=== PATIENT | male | born 1995 | race Caucasian/White ===

== ENCOUNTER 2018-09-23 22:42 | Emergency (ER) | payer OTHER ==
[~2018-09-23] VITALS: Ht 175.3 cm; Wt 95.5 kg
[2018-09-23] MEDS ORDERED: MOBI15TA PO (22:47)
[2018-09-23] MEDS ORDERED: LORA-674 PO (22:47)
[2018-09-23] MEDS ORDERED: FLON1SPR NARES (22:47)
[2018-09-23] MEDS ORDERED: TRUVTAB PO (22:47)
[2018-09-24] MEDS ORDERED: ISOVUE-370 76% 100ML VIAL (Q9967) As Ordered ONE (00:28)
[2018-09-24 00:52] LABS: HEMOGLOBIN 14.4 g/dl (13.5-17.5); MEAN CORPUSCULAR HEMOGLOBIN 33.6 pg (27.0-33.0); MEAN CORPUSCULAR HGB CONC 35.1 g/dl (32.0-36.5); MEAN CORPUSCULAR VOLUME 95.8 fl (80.0-96.0); PLATELET COUNT, AUTOMATED 183 10^3/uL (150-450); RED BLOOD COUNT 4.28 10^6/uL (4.30-6.10); WHITE BLOOD COUNT 10.1 10^3/uL (4.0-10.0)
[2018-09-24] MEDS ORDERED: COLA100C5 PO (02:04)
--- NOTE | 2018-09-24 02:41 | REPVR ---
EXAM: CT Abdomen and Pelvis With Contrast EXAM DATE/TIME: 09/24/2018 12:13 AM CLINICAL HISTORY: 23 years old, male; Other: Rectal pain; Additional info: RO fecal impaction TECHNIQUE: Imaging protocol: Axial computed tomography images of the abdomen and pelvis with intravenous contrast. Coronal and sagittal reformatted images were created and reviewed. Radiation optimization: All CT scans at this facility use at least one of these dose optimization techniques: automated exposure control; mA and/or kV adjustment per patient size (includes targeted exams where dose is matched to clinical indication); or iterative reconstruction. Contrast material: ISO; Contrast volume: 100 ml; Contrast route: AC; COMPARISON: No relevant prior studies available. FINDINGS: LUNG BASES: Mild dependent atelectasis. VASCULAR: Major vasculature is within normal limits. PERITONEAL : No free air or free fluid. GI: No hiatal hernia. The stomach contains some fluid and gas. The stomach is not sufficiently distended to evaluate wall thickening or exclude fold thickening. Nonspecific fluid-filled loops of small bowel. No asymmetric small bowel dilation to suggest obstruction. There is no focal mesenteric inflammatory stranding. Multiple small nonspecific mesenteric lymph nodes are seen. Scattered fecal material and gas within portions of the colon and rectum. No significant colonic or rectal distention with fecal material or gas to suggest constipation or fecal impaction. Portions of the colon appear slightly thick walled from the distal transverse through the rectum. This could be artifact secondary to insufficient distention but minimal proctocolitis maybe a possibility. No pericolonic inflammatory stranding seen. Slightly elevated perirectal vascularity noted as well as mildly enlarged perirectal lymph nodes measuring up to 10 mm in short axis. These findings could represent proctitis with reactive lymph nodes, and/or hemorrhoids. Followup with direct visualization or barium enema is advised, to exclude any possibility of underlying rectal lesion. No perirectal or perianal abscess or soft tissue gas is seen. No evidence of acute diverticulitis. The appendix is not visualized and may been removed. HEPATOBILIARY, PANCREAS, SPLEEN: Sagittal hepatic length is 18.4 cm. 12.7 mm hypoenhancing lesion noted within the posterior segment of the right hepatic lobe, most likely a hemangioma. Partially contracted gallbladder. No calcified gallstones or biliary dilation. No pancreatic inflammation. Spleen not enlarged. ADRENALS, KIDNEYS, BLADDER, RETROPERITONEAL: Adrenals within normal limits. No hydronephrosis. Symmetric renal enhancement. No perinephric stranding or fluid. Nonobstructive 5 mm left midpole renal calculus. No perivesical stranding or fluid. The prostate does not appear enlarged. No bladder wall thickening. MUSCULOSKELETAL: Mild subcutaneous stranding and bubbles of gas right posterior gluteal possibly from subcutaneous injection. No acute fracture or suspicious bone lesion. IMPRESSION: No findings to suggest constipation or fecal impaction are seen. There is mildly elevated perirectal vascularity and slightly prominent perirectal lymph nodes. This could be correlated for proctitis. Gastrointestinal findings and recommendations discussed above in detail. Other incidental and non-emergent findings discussed above. Electronically signed by: Edgar Ponce On 09/24/2018 02:41:12 AM
[2018-09-24 04:35] LABS: CHLAMYDIA DNA AMPLIFICATION NEGATIVE (NEGATIVE); GC DNA AMPLIFICATION NEGATIVE (NEGATIVE)
[2018-09-24 05:00] VITALS: BP 107/58
== END 2018-09-24 05:02 | disposition home or self-care (01) ==
LOC: M ED 22:42
DX: K59.00 Constipation, unspecified (principal); K62.89 Other specified diseases of anus and rectum; Z79.899 Other long term (current) drug therapy
CPT/HCPCS: 36415; 74177; 80047; 85027; 87491; 87591; 99284; Q9967

== ENCOUNTER 2018-11-07 19:40 | Emergency (ER) | payer OTHER ==
[~2018-11-07] VITALS: Ht 172.7 cm; Wt 95.5 kg
[~2018-11-07 19:40] MED LIST: COLA100C5 PO; FLON1SPR NARES; LORA-674 PO; MOBI15TA PO; TRUVTAB PO
[2018-11-07] MEDS ORDERED: TRAM50TA2 PO (19:49)
[2018-11-07 20:20] LABS: BASO % 0.3 % (0.0-1.0); EOS # 0.3 10^3/uL (0.0-0.50); EOS % 4.4 % (0.0-3.0); HEMATOCRIT 40.9 % (42.0-52.0); HEMOGLOBIN 14.4 g/dl (13.5-17.5); LYMPH # 2.1 10^3/uL (1.5-6.5); LYMPH % 32.9 % (24.0-44.0); MEAN CORPUSCULAR HEMOGLOBIN 33.5 pg (27.0-33.0); MEAN CORPUSCULAR HGB CONC 35.2 g/dl (32.0-36.5); MEAN CORPUSCULAR VOLUME 95.1 fl (80.0-96.0); MONO # 0.5 10^3/uL (0.0-0.8); MONO % 7.2 % (0.0-5.0); NEUTROPHILS # 3.5 10^3/uL (1.8-7.7); PLATELET COUNT, AUTOMATED 190 10^3/uL (150-450); WHITE BLOOD COUNT 6.4 10^3/uL (4.0-10.0)
[2018-11-07 20:42] LABS: ALBUMIN 3.9 GM/DL (3.2-5.2); ALT/SGPT 32 U/L (12-78); BILIRUBIN,DIRECT 0.2 MG/DL (0.0-0.2); BILIRUBIN,TOTAL 0.8 MG/DL (0.2-1.0); BLOOD UREA NITROGEN 14 MG/DL (7-18); CALCIUM LEVEL 8.4 MG/DL (8.5-10.1); CARBON DIOXIDE LEVEL 30 MEQ/L (21-32); CHLORIDE LEVEL 106 MEQ/L (98-107); GLOMERULAR FILTRATION RATE > 60.0 (>60); GLUCOSE, FASTING 90 MG/DL (70-100); LIPASE 96 U/L (73-393); POTASSIUM SERUM 3.6 MEQ/L (3.5-5.1); SODIUM LEVEL 141 MEQ/L (136-145); TOTAL PROTEIN 6.8 GM/DL (6.4-8.2)
[2018-11-07] MEDS ORDERED: traMADol 50 MG TAB PO ONE (21:00)
--- NOTE | 2018-11-07 22:25 | REPVR ---
EXAM: US Abdomen Limited, Right Upper Quadrant EXAM DATE/TIME: 11/07/2018 9:18 PM CLINICAL HISTORY: 23 years old, male; Abdominal pain; Epigastric; Additional info: Ruq pain TECHNIQUE: Imaging protocol: Real-time ultrasound of the abdomen with image documentation. Examination was focused on the right upper quadrant. COMPARISON: CT ABD/PEL W/IV CONTRAST ONLY 09/24/2018 12:47 AM FINDINGS: Liver: Mildly echogenic, consistent with fatty infiltration. Gallbladder: Partially contracted. No gallstones. No gallbladder wall thickening or pericholecystic fluid. 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 Common bile duct: No stones. No ductal dilatation. Pancreas: Unremarkable as visualized. Right kidney: No mass. No definite stones. No hydronephrosis. IMPRESSION: No acute sonographic findings. Electronically signed by: Micky Beckham On 11/07/2018 22:25:01 PM
[2018-11-07 23:28] VITALS: BP 126/78
== END 2018-11-08 00:01 | disposition home or self-care (01) ==
LOC: M ED 19:40
DX: G89.29 Other chronic pain (principal); R10.11 Right upper quadrant pain; R11.2 Nausea with vomiting, unspecified; Z87.448 Personal history of other diseases of urinary system; J30.2 Other seasonal allergic rhinitis; K64.9 Unspecified hemorrhoids; K76.89 Other specified diseases of liver; K51.20 Ulcerative (chronic) proctitis without complications; Z79.899 Other long term (current) drug therapy

== ENCOUNTER → 2018-12-10 | Outpatient (CLI) | payer OTHER ==
[~2018-12-10] MED LIST changes: +TRAM50TA2 PO
--- NOTE | 2018-12-10 11:00 | REP ---
Hepatobiliary scan and gallbladder ejection fraction: History: Unspecified abdominal pain. Change in bowel habits. Technique: 6.5 mCi of technetium-99m mebrofenin was injected and sequential anterior images are acquired. 65 minutes after the mebrofenin injection, the patient consumed 8 ounces Ensure and an additional 60 minutes of imaging was acquired. Regions of interest are plotted around the gallbladder. Findings: The initial hepatocellular parenchymal uptake phase is normal and homogeneous. Intra- and extra-hepatic bile ducts are labeled by the 10 -minute image. The gallbladder is first labeled on the 10 -minute image. There is normal washout from the liver parenchyma into the gallbladder and small intestine on subsequent images. The gallbladder ejection fraction is 46 %. Values greater than 35 % are considered normal with this technique. Impression: Normal hepatobiliary scan and normal gallbladder ejection fraction. Electronically Signed by Donald Vazquez MD 12/10/2018 10:51 A
== END ==
LOC: M RAD 07:51
PROVIDERS: ATTEND Preventive Medicine Undersea and Hyperbaric Medicine
DX: R10.9 Unspecified abdominal pain (principal); R19.4 Change in bowel habit
CPT/HCPCS: 78227; A9537; J2805

== ENCOUNTER 2019-12-01 05:18 | Emergency (ER) | payer OTHER ==
[~2019-12-01] VITALS: Ht 172.7 cm; Wt 95.5 kg
[2019-12-01 05:19] VITALS: BP 128/87
[2019-12-01] MEDS ORDERED: BUPR-69 (05:23)
[2019-12-01] MEDS ORDERED: PRED20TA PO (05:43)
[2019-12-01] MEDS ORDERED: CETI-24 PO (05:43)
[2019-12-01] MEDS ORDERED: CETIRIZINE (ZyrTEC) 10 MG TAB PO ONE (05:45)
[2019-12-01] MEDS ORDERED: methylPREDNISolone 125MG 2ML VIAL IM ONE (05:45)
== END 2019-12-01 06:00 | disposition home or self-care (01) ==
LOC: M ED 05:18
DX: J30.89 Other allergic rhinitis (principal); Z88.1 Allergy status to other antibiotic agents; Z79.899 Other long term (current) drug therapy
CPT/HCPCS: 96372; 99283; J2930

== ENCOUNTER 2019-12-20 11:23 | Emergency (ER) | payer OTHER ==
[~2019-12-20] VITALS: Ht 175.3 cm; Wt 98.3 kg
[~2019-12-20 11:23] MED LIST changes: +BUPR-69; +CETI-24 PO; +PRED20TA PO
--- NOTE | 2019-12-20 12:53 | REPVR ---
PROCEDURE INFORMATION: Exam: CT Lumbar Spine Without Contrast Exam date and time: 12/20/2019 12:38 PM Age: 24 years old Clinical indication: Low back pain; Additional info: Lift injury TECHNIQUE: Imaging protocol: Computed tomography images of the lumbar spine without contrast. Radiation optimization: All CT scans at this facility use at least one of these dose optimization techniques: automated exposure control; mA and/or kV adjustment per patient size (includes targeted exams where dose is matched to clinical indication); or iterative reconstruction. COMPARISON: No relevant prior studies available. FINDINGS: Vertebrae: There is accentuation of the normal lumbar lordosis. No acute fracture. Normal alignment. Discs/Spinal canal/Neural foramina: At L3/4, there is shallow disc bulging. The spinal canal and neural foramina are patent. At L4/5, there is shallow disc bulging. There is mild facet hypertrophy. The spinal canal and neural foramina are patent. At L5/S1, there is shallow disc bulging. There is mild facet hypertrophy. The spinal canal and neural foramina are patent. Kidneys and ureters: There is a nonobstructing left renal calculus. Soft tissues: Unremarkable. IMPRESSION: No acute abnormality or advanced degenerative change. Electronically signed by: Lenore Cuevas On 12/20/2019 12:53:55 PM
[2019-12-20] MEDS ORDERED: KETOROLAC 60MG 2ML VIAL IM ONE (13:00)
[2019-12-20] MEDS ORDERED: methylPREDNISolone 125MG 2ML VIAL IM ONE (13:00)
[2019-12-20] MEDS ORDERED: LIDOCAINE 5% (LIDODERM) PATCH TD ONE (13:00)
--- NOTE | 2019-12-20 13:09 | REPVR ---
PROCEDURE INFORMATION: Exam: XR Left Forearm Exam date and time: 12/20/2019 1:04 PM Age: 24 years old Clinical indication: Pain; Lower or forearm; Left; Additional info: Lift injury TECHNIQUE: Imaging protocol: XR Left forearm. Views: 2 views. COMPARISON: No relevant prior studies available. FINDINGS: Bones/joints: Normal. Soft tissues: Normal. IMPRESSION: No acute findings. Electronically signed by: Lenore Cuevas On 12/20/2019 13:08:37 PM
--- NOTE | 2019-12-20 13:09 | REPVR ---
PROCEDURE INFORMATION: Exam: XR Left Elbow Exam date and time: 12/20/2019 1:04 PM Age: 24 years old Clinical indication: Pain; Lower or forearm; Left; Additional info: Lift injury TECHNIQUE: Imaging protocol: XR Left elbow. Views: 3 or more views. COMPARISON: No relevant prior studies available. FINDINGS: Bones/joints: Normal. Soft tissues: Normal. IMPRESSION: No acute findings. Electronically signed by: Lenore Cuevas On 12/20/2019 13:08:56 PM
[2019-12-20] MEDS ORDERED: LIDO5DIS41 TOP (13:18)
[2019-12-20] MEDS ORDERED: IBUP80TA PO (13:23)
[2019-12-20 13:26] VITALS: BP 134/79
[2019-12-20] MEDS ORDERED: **NOTE PATIENT COMMENT** MISC XX SCH (21:00)
== END 2019-12-20 13:38 | disposition home or self-care (01) ==
LOC: M ED 11:23
DX: M25.522 Pain in left elbow (principal); M54.5 Low back pain; Z79.899 Other long term (current) drug therapy; Z88.1 Allergy status to other antibiotic agents
CPT/HCPCS: 72131; 73080; 73090; 96372; 99284; J1885; J2930

== ENCOUNTER → 2020-02-25 | Outpatient (CLI) | payer OTHER ==
[~2020-02-25] MED LIST changes: +IBUP80TA PO; +LIDO5DIS41 TOP
== END ==
LOC: M LABSMTC 13:47
PROVIDERS: ATTEND Family Medicine
DX: Z20.828 Contact with and (suspected) exposure to other viral communicable diseases (principal)

== ENCOUNTER 2020-03-10 17:31 | Emergency (ER) | payer OTHER ==
[~2020-03-10] VITALS: Ht 175.3 cm; Wt 101.4 kg
[2020-03-10] MEDS ORDERED: BUPR300T92 PO (18:05)
[2020-03-10] MEDS ORDERED: DESC1TAB PO (18:05)
[2020-03-10 20:20] VITALS: BP 134/76
== END 2020-03-10 20:22 | disposition home or self-care (01) ==
LOC: M ED 17:31
DX: R19.5 Other fecal abnormalities (principal); Z88.1 Allergy status to other antibiotic agents; Z79.899 Other long term (current) drug therapy

== ENCOUNTER → 2020-07-04 | Outpatient (CLI) | payer OTHER ==
[~2020-07-04] MED LIST changes: +BUPR300T92 PO; +DESC1TAB PO
--- NOTE | 2020-07-05 04:46 | REP ---
INDICATION: CONTUSION COMPARISON: None. TECHNIQUE: AP, lateral, bilateral oblique views left foot. FINDINGS: The osseous structures and joint spaces are intact and normal. There is no evidence for acute fracture or dislocation. Surrounding soft tissues are unremarkable. No subcutaneous emphysema or radiodense foreign body. IMPRESSION: . No acute fracture or dislocation. <Electronically signed by Jacky Guo > 07/05/20 [id number]
== END ==
LOC: M WUC 12:07
PROVIDERS: ATTEND Physician Assistant
DX: S90.32XA Contusion of left foot, initial encounter (principal); Y92.9 Unspecified place or not applicable; Y93.9 Activity, unspecified; Y99.9 Unspecified external cause status